=== PATIENT | female | born 1950 | race African-American/Black ===

== ENCOUNTER 2017-02-07 20:31 | Inpatient (IN) | payer MEDICARE, MEDICAID ==
[~2017-02-07] VITALS: Ht 165.1 cm; Wt 88.0 kg
[~2017-02-07 20:31] MED LIST: BUDE6HFA IH; DIVA500T51 PO; Hydrocortisone 2.5% TOP; NEBI10TA2 PO; OMEP20CA4 PO; VALS40TA4 PO
[2017-02-07] MEDS ORDERED: ASPIRIN 81MG TABLET PO ONE (21:30)
[2017-02-07] MEDS ORDERED: NITROGLYCERIN 0.4MG TABLET SL SL PRN (21:30)
[2017-02-07 21:47] LABS: BASOPHILS % 0.9 % (0.0-2.0); EOSINOPHILS % 2.5 % (0.0-5.0); HEMATOCRIT. 35.4 % (36.0-48.0); HEMOGLOBIN. 12.1 g/dL (12.0-16.0); MEAN CORPUSCULAR HEMOGLOBIN 29.9 pg (28.0-32.0); MEAN CORPUSCULAR VOLUME 87.4 fL (81.0-99.0); MEAN PLATELET VOLUME 9.4 fl (7.4-10.4); NEUTROPHILS % 47.6 % (40.0-76.0); PLATELET 143 x1000/uL (130-400); RED BLOOD CELL COUNT 4.05 mill/uL (4.2-5.4); RED CELL DISTRIBUTION WIDTH 14.4 % (11.6-14.6)
[2017-02-07 21:52] LABS: CHLORIDE 109 mEq/L (98-107)
[2017-02-07 21:54] LABS: PROTHROMBIN TIME 10.4 sec (9.4-11.6)
[2017-02-07 21:59] LABS: CARBON DIOXIDE 27 mEq/L (21-32)
[2017-02-07 22:02] LABS: TROPONIN I < 0.02 ng/mL (0.00-0.04)
[2017-02-07] MEDS ORDERED: ONDANSETRON HCL 4MG/2ML VIAL IV ONE (22:30)
[2017-02-07] MEDS ORDERED: PANTOPRAZOLE SODIUM 40 MG/VIAL IV ONE (23:15)
[2017-02-07] MEDS ORDERED: SODIUM CHLORIDE 0.9% 1,000 ML IV SCH (23:53)
[2017-02-08] MEDS ORDERED: IBUPROFEN 600MG TABLET PO PRN
[2017-02-08] MEDS ORDERED: ACETAMINOPHEN 325MG TABLET PO PRN
[2017-02-08] MEDS ORDERED: POTASSIUM CHLORIDE 20MEQ TABLET SR PO ONE
[2017-02-08] MEDS ORDERED: ONDANSETRON HCL 4MG/2ML VIAL IV PRN (00:15)
[2017-02-08] MEDS ORDERED: HYDROCODONE/ACETAMINOPHEN 5/325MG TABLET PO PRN (00:15)
[2017-02-08] MEDS ORDERED: CLONIDINE 0.1MG TABLET PO PRN (00:15)
[2017-02-08] MEDS ORDERED: DOCUSATE SODIUM 100MG CAPSULE PO PRN (00:15)
[2017-02-08] MEDS ORDERED: MAGNESIUM/ALUMINUM HYDROXIDE/SIMETHICONE 30ML UDC PO PRN (00:15)
[2017-02-08 00:49] LABS: CHLORIDE 108 mEq/L (98-107)
[2017-02-08 00:56] LABS: CARBON DIOXIDE 27 mEq/L (21-32)
[2017-02-08 01:24] LABS: CLARITY URINE CLEAR (CLEAR); COLOR URINE YELLOW (YELLOW); GLUCOSE URINE NEGATIVE (NEGATIVE); KETONES URINE NEGATIVE (NEGATIVE); LEUKOCYTE ESTERASE URINE NEGATIVE (NEGATIVE); NITRITE URINE NEGATIVE (NEGATIVE); OCCULT BLOOD URINE NEGATIVE (NEGATIVE); PROTEIN URINE NEGATIVE (NEGATIVE)
[2017-02-08 02:59] LABS: *AMPHETAMINES SCREEN URINE NEGATIVE (NEGATIVE); *BARBITURATES SCREEN URINE NEGATIVE (NEGATIVE); *BENZODIAZEPINES SCREEN URINE NEGATIVE (NEGATIVE); *COCAINE SCREEN URINE NEGATIVE (NEGATIVE); CANNABINOID URINE SCREEN NEGATIVE (NEGATIVE); METHADONE URINE SCREEN NEGATIVE (NEGATIVE); OPIATES URINE SCREEN NEGATIVE (NEGATIVE); PHENCYCLIDINE URINE SCREEN NEGATIVE (NEGATIVE)
[2017-02-08 06:09] VITALS: BP 151/74
[2017-02-08] MEDS ORDERED: DEXTROSE 50% WATER 50ML SYRINGE IV PRN (06:45)
[2017-02-08] MEDS: INSULIN LISPRO 100 UNITS/ML SUBCUT SCH ×4 (07:37→20:46)
[2017-02-08] MEDS: BLOOD SUGAR DIAGNOSTIC STRIP TEST SCH ×4 (07:37→20:45)
[2017-02-08 08:20] VITALS: BP 110/80
[2017-02-08] MEDS: ASPIRIN 81MG EC TABLET PO SCH (09:06)
[2017-02-08] MEDS: ENOXAPARIN 40MG/0.4ML SYR SUBCUT SCH (09:06)
[2017-02-08] MEDS: ACETAMINOPHEN 325MG TABLET PO PRN ×2 (09:10→18:09)
[2017-02-08 09:27] LABS: CREATINE KINASE 823 IU/L (26-192); CREATINE KINASE MB FRACTION 5.5 ng/mL (0.5-3.6); HDL CHOLESTEROL 53 mg/dL (40-59); LDL CHOLESTEROL 74 mg/dL (5-100); TROPONIN I < 0.02 ng/mL (0.00-0.04)
[2017-02-08] MEDS ORDERED: ATOR10TA69 PO (10:52)
[2017-02-08] MEDS ORDERED: AMLO2.5T45 PO (10:54)
[2017-02-08] MEDS ORDERED: CHOL20004 PO (10:54)
[2017-02-08] MEDS ORDERED: METF500T4 PO (10:56)
[2017-02-08] MEDS ORDERED: [UNRECOGNIZED DRUG - OTHER] (10:56)
[2017-02-08] MEDS ORDERED: ASPI-1159 PO (10:57)
[2017-02-08] MEDS ORDERED: RANO500T3 PO (11:00)
[2017-02-08] MEDS ORDERED: MEDICATION NOT ON FORMULARY EA (Cholecalciferol (Vitamin D) 50,000 UNIT) PO SCH (11:00)
[2017-02-08] MEDS ORDERED: ATORVASTATIN CALCIUM 10MG TABLET PO SCH (11:30)
[2017-02-08] MEDS ORDERED: POTASSIUM CHLORIDE 20MEQ TABLET SR PO SCH (11:45)
[2017-02-08 12:00] VITALS: BP 148/74
[2017-02-08] MEDS: DIVALPROEX SODIUM 500MG ER TABLET PO SCH (12:24)
[2017-02-08] MEDS: AMLODIPINE 5MG TABLET PO SCH (12:24)
[2017-02-08] MEDS: RANOLAZINE 500 MG TAB.SR.12H PO SCH ×2 (12:24→20:50)
[2017-02-08 15:49] LABS: CREATINE KINASE 746 IU/L (26-192); TROPONIN I < 0.02 ng/mL (0.00-0.04)
[2017-02-08 16:00] VITALS: BP 135/75
[2017-02-08] MEDS: METFORMIN HCL 500MG TABLET PO SCH (18:09)
[2017-02-08 20:00] VITALS: BP 113/52
[2017-02-09] VITALS: BP 145/71
[2017-02-09 04:00] VITALS: BP 138/72
[2017-02-09 06:59] LABS: BASOPHILS % 0.9 % (0.0-2.0); EOSINOPHILS % 3.2 % (0.0-5.0); HEMATOCRIT. 39.7 % (36.0-48.0); HEMOGLOBIN. 13.6 g/dL (12.0-16.0); LYMPHOCYTES % 42.8 % (20.0-50.0); MEAN CORPUSCULAR VOLUME 87.5 fL (81.0-99.0); MEAN PLATELET VOLUME 9.6 fl (7.4-10.4); MONOCYTES % 10.8 % (2.0-8.0); NEUTROPHILS % 42.3 % (40.0-76.0); PLATELET 150 x1000/uL (130-400); RED BLOOD CELL COUNT 4.53 mill/uL (4.2-5.4); RED CELL DISTRIBUTION WIDTH 14.4 % (11.6-14.6)
[2017-02-09 07:39] LABS: CARBON DIOXIDE 26 mEq/L (21-32); CHLORIDE 106 mEq/L (98-107)
[2017-02-09] MEDS: INSULIN LISPRO 100 UNITS/ML SUBCUT SCH ×4 (07:50→22:17)
[2017-02-09 08:00] VITALS: BP 110/64
[2017-02-09] MEDS: BLOOD SUGAR DIAGNOSTIC STRIP TEST SCH ×4 (08:08→22:17)
[2017-02-09] MEDS: DIVALPROEX SODIUM 500MG ER TABLET PO SCH (08:58)
[2017-02-09] MEDS: ASPIRIN 81MG EC TABLET PO SCH (08:58)
[2017-02-09] MEDS: RANOLAZINE 500 MG TAB.SR.12H PO SCH ×2 (08:58→22:14)
[2017-02-09] MEDS: ENOXAPARIN 40MG/0.4ML SYR SUBCUT SCH (08:59)
[2017-02-09] MEDS: OMEPRAZOLE 20MG CAPSULE EXTENDED RELEASE PO SCH (08:59)
[2017-02-09] MEDS ORDERED: ERGOCALCIFEROL 50000UNITS CAPSULE PO SCH (09:00)
[2017-02-09] MEDS: AMLODIPINE 5MG TABLET PO SCH (09:00)
[2017-02-09] MEDS ORDERED: ASPIRIN 81MG EC TABLET PO SCH (09:00)
[2017-02-09 12:00] VITALS: BP 128/60
[2017-02-09 16:00] VITALS: BP 129/66
[2017-02-09] MEDS: METFORMIN HCL 500MG TABLET PO SCH (17:02)
[2017-02-09 20:00] VITALS: BP 131/76
[2017-02-09] MEDS ORDERED: ATORVASTATIN CALCIUM 10MG TABLET PO SCH (21:00)
[2017-02-10] VITALS (7 sets, daily range): BP systolic 128–138; BP diastolic 71–74
[2017-02-10 06:42] LABS: BASOPHILS % 0.8 % (0.0-2.0); EOSINOPHILS % 2.5 % (0.0-5.0); HEMATOCRIT. 39.5 % (36.0-48.0); HEMOGLOBIN. 13.6 g/dL (12.0-16.0); LYMPHOCYTES % 34.5 % (20.0-50.0); MEAN CORPUSCULAR HEMOGLOBIN 30.6 pg (28.0-32.0); MEAN CORPUSCULAR VOLUME 88.4 fL (81.0-99.0); MEAN PLATELET VOLUME 9.9 fl (7.4-10.4); MONOCYTES % 10.3 % (2.0-8.0); NEUTROPHILS % 51.9 % (40.0-76.0); PLATELET 162 x1000/uL (130-400); RED BLOOD CELL COUNT 4.46 mill/uL (4.2-5.4); RED CELL DISTRIBUTION WIDTH 14.1 % (11.6-14.6)
[2017-02-10] MEDS: BLOOD SUGAR DIAGNOSTIC STRIP TEST SCH ×3 (06:42→17:00)
[2017-02-10] MEDS: INSULIN LISPRO 100 UNITS/ML SUBCUT SCH ×3 (06:42→17:18)
[2017-02-10 07:16] LABS: CARBON DIOXIDE 27 mEq/L (21-32); CHLORIDE 105 mEq/L (98-107)
[2017-02-10] MEDS ORDERED: ENOXAPARIN 30MG/0.3ML SYR SUBCUT SCH (09:00)
[2017-02-10] MEDS: RANOLAZINE 500 MG TAB.SR.12H PO SCH (10:46)
[2017-02-10] MEDS: DIVALPROEX SODIUM 500MG ER TABLET PO SCH (10:47)
[2017-02-10] MEDS: ASPIRIN 81MG EC TABLET PO SCH (10:47)
[2017-02-10] MEDS: AMLODIPINE 5MG TABLET PO SCH (10:47)
[2017-02-10] MEDS: OMEPRAZOLE 20MG CAPSULE EXTENDED RELEASE PO SCH (10:47)
[2017-02-10] MEDS: METFORMIN HCL 500MG TABLET PO SCH (17:15)
[2017-02-11] MEDS ORDERED: FAMOTIDINE 20MG TABLET PO SCH (09:00)
== END 2017-02-10 21:44 | disposition home or self-care (01) | DRG 206 ==
LOC: ER 21:38 → 6WST 23:55 → ENRESERV 02-08 02:43
PROVIDERS: ADMIT Internal Medicine; ATTEND Internal Medicine
DX: M94.0 Chondrocostal junction syndrome [Tietze] (principal); M62.82 Rhabdomyolysis; I11.9 Hypertensive heart disease without heart failure; M48.02 Spinal stenosis, cervical region; E83.39 Other disorders of phosphorus metabolism; E11.9 Type 2 diabetes mellitus without complications; E66.9 Obesity, unspecified; Z68.32 Body mass index [BMI] 32.0-32.9, adult; I25.10 Atherosclerotic heart disease of native coronary artery without angina pectoris; K21.9 Gastro-esophageal reflux disease without esophagitis; M79.7 Fibromyalgia; E78.5 Hyperlipidemia, unspecified; Z90.710 Acquired absence of both cervix and uterus; Z86.73 Personal history of transient ischemic attack (TIA), and cerebral infarction without residual deficits; Z88.2 Allergy status to sulfonamides
CPT/HCPCS: 36415; 71010; 76700; 80048; 80053; 80061; 80305; 81003; 82550; 82553; 82962; 83690; 83735; 83880; 84443; 84484; 85025; 85610; 93005; 93306; 93970; 96361; 96374; 96375; 99285; C9113; J1650; J2405; J7030

== ENCOUNTER 2017-11-22 11:52 | Emergency (ER) | payer MEDICARE, MEDICAID ==
[~2017-11-22] VITALS: Ht 165.1 cm; Wt 87.0 kg
[~2017-11-22 11:52] MED LIST changes: +AMLO2.5T45 PO; +ASPI-1159 PO; +ATOR10TA69 PO; -BUDE6HFA IH; -DIVA500T51 PO; -Hydrocortisone 2.5% TOP; +METF500T6 PO; -NEBI10TA2 PO; -OMEP20CA4 PO; +RANO500T3 PO; -VALS40TA4 PO
[2017-11-22] MEDS ORDERED: SODIUM CHLORIDE 0.9% 500 ML IV ONE (13:00)
[2017-11-22] MEDS ORDERED: ONDANSETRON HCL 4MG/2ML VIAL IV ONE (13:00)
[2017-11-22 14:33] LABS: HEMOGLOBIN. 13.4 g/dL (12.0-16.0); MEAN CORPUSCULAR VOLUME 87.2 fL (81.0-99.0); MEAN PLATELET VOLUME 9.9 fl (7.4-10.4); PLATELET 131 x1000/uL (130-400); RED BLOOD CELL COUNT 4.47 mill/uL (4.2-5.4); RED CELL DISTRIBUTION WIDTH 14.1 % (11.6-14.6)
[2017-11-22 14:39] LABS: CHLORIDE 108 mEq/L (98-107)
[2017-11-22 14:40] LABS: PROTHROMBIN TIME 10.7 sec (9.4-11.6)
[2017-11-22 14:55] LABS: CLARITY URINE CLEAR (CLEAR); COLOR URINE DARK YELLOW (YELLOW); KETONES URINE TRACE (NEGATIVE); LEUKOCYTE ESTERASE URINE NEGATIVE (NEGATIVE); NITRITE URINE NEGATIVE (NEGATIVE); OCCULT BLOOD URINE NEGATIVE (NEGATIVE); PH URINE 5.5 (4.5-8.0); PROTEIN URINE TRACE (NEGATIVE); SPECIFIC GRAVITY URINE 1.027 (1.005-1.030)
[2017-11-22 15:15] LABS: *AMPHETAMINES SCREEN URINE NEGATIVE (NEGATIVE); *BARBITURATES SCREEN URINE NEGATIVE (NEGATIVE); *BENZODIAZEPINES SCREEN URINE NEGATIVE (NEGATIVE)
[2017-11-22 15:16] LABS: *COCAINE SCREEN URINE NEGATIVE (NEGATIVE); CANNABINOID URINE SCREEN NEGATIVE (NEGATIVE); HEPATITIS B SURFACE ANTIGEN NEGATIVE; METHADONE URINE SCREEN NEGATIVE (NEGATIVE); OPIATES URINE SCREEN NEGATIVE (NEGATIVE); PHENCYCLIDINE URINE SCREEN NEGATIVE (NEGATIVE)
[2017-11-22 15:19] LABS: PLATELET ESTIMATE NORMAL
[2017-11-22 15:44] LABS: HEPATITIS B CORE AB IGM NEGATIVE
[2017-11-22 15:45] LABS: HEPATITIS A AB IGM NEGATIVE (NEGATIVE)
[2017-11-22] MEDS ORDERED: ACETAMINOPHEN 650MG/20.3ML UDC PO ONE (18:15)
[2017-11-22 20:30] VITALS: BP 132/80
== END 2017-11-22 21:10 | disposition home or self-care (01) ==
LOC: ER 12:55
DX: N20.0 Calculus of kidney (principal); E11.21 Type 2 diabetes mellitus with diabetic nephropathy; E86.0 Dehydration; I10 Essential (primary) hypertension; E87.8 Other disorders of electrolyte and fluid balance, not elsewhere classified; N17.0 Acute kidney failure with tubular necrosis; Z79.899 Other long term (current) drug therapy
CPT/HCPCS: 36415; 71045; 74176; 80053; 80305; 81003; 82941; 83036; 83605; 83880; 84484; 85025; 85610; 86677; 87040; 87086; 93005; 96361; 96374; 99285; J2405; J7040; 86705; 86709; 86803; 87340

== ENCOUNTER 2018-12-18 15:48 | Emergency (ER) | payer MEDICARE, MEDICAID ==
[~2018-12-18] VITALS: Ht 175.3 cm; Wt 68.5 kg
[~2018-12-18 15:48] MED LIST changes: -ASPI-1159 PO; +ASPI-1393 PO; +METF-414 PO; -METF500T6 PO
[2018-12-18] MEDS ORDERED: SODIUM CHLORIDE 0.9% 1,000 ML IV ONE (18:30)
[2018-12-18 19:15] LABS: BASOPHILS % 0.8 % (0.0-2.0); EOSINOPHILS % 2.3 % (0.0-5.0); HEMATOCRIT. 41.6 % (36.0-48.0); HEMOGLOBIN. 14.2 g/dL (12.0-16.0); LYMPHOCYTES % 47.8 % (20.0-50.0); MEAN CORPUSCULAR HEMOGLOBIN 30.4 pg (28.0-32.0); MEAN CORPUSCULAR VOLUME 89.3 fL (81.0-99.0); MEAN PLATELET VOLUME 9.7 fl (7.4-10.4); MONOCYTES % 9.2 % (2.0-8.0); NEUTROPHILS % 39.9 % (40.0-76.0); PLATELET 144 x1000/uL (130-400); RED BLOOD CELL COUNT 4.66 mill/uL (4.2-5.4)
[2018-12-18 19:20] LABS: CHLORIDE 106 mEq/L (98-107)
[2018-12-18] MEDS ORDERED: KETOROLAC 15MG/ML VIAL IV ONE (20:45)
[2018-12-18] MEDS ORDERED: ASPIRIN 81MG TABLET PO ONE (21:30)
[2018-12-18 22:00] VITALS: BP 136/72
== END 2018-12-19 00:02 | disposition home or self-care (01) ==
LOC: ER 15:48
DX: R07.89 Other chest pain (principal); M79.7 Fibromyalgia; E11.9 Type 2 diabetes mellitus without complications; I10 Essential (primary) hypertension; K21.9 Gastro-esophageal reflux disease without esophagitis; Z90.710 Acquired absence of both cervix and uterus; Z88.2 Allergy status to sulfonamides; Z79.899 Other long term (current) drug therapy
CPT/HCPCS: 36415; 71045; 80053; 83880; 84484; 85025; 93005; 96374; 99284; J1885; J7030

== ENCOUNTER 2019-05-11 17:19 | Emergency (ER) | payer MEDICARE, MEDICAID ==
[~2019-05-11] VITALS: Ht 165.1 cm; Wt 84.0 kg
[2019-05-11 17:29] VITALS: BP 137/89
== END 2019-05-11 22:40 | disposition left against medical advice (07) ==
LOC: ER 17:19
DX: Z53.21 Procedure and treatment not carried out due to patient leaving prior to being seen by health care provider (principal)

== ENCOUNTER 2019-07-07 12:07 | Emergency (ER) | payer MEDICARE, MEDICAID ==
[~2019-07-07] VITALS: Ht 167.6 cm; Wt 85.0 kg
[~2019-07-07 12:07] MED LIST changes: -ASPI-1393 PO; +ASPI-1497 PO
[2019-07-07] MEDS ORDERED: KETOROLAC 30MG/ML VIAL IM ONE (15:00)
[2019-07-07 15:43] VITALS: BP 149/64
== END 2019-07-07 15:44 | disposition home or self-care (01) ==
LOC: ER 12:07
DX: S10.83XA Contusion of other specified part of neck, initial encounter (principal); I10 Essential (primary) hypertension; E11.9 Type 2 diabetes mellitus without complications; K21.9 Gastro-esophageal reflux disease without esophagitis; E05.90 Thyrotoxicosis, unspecified without thyrotoxic crisis or storm; Z86.73 Personal history of transient ischemic attack (TIA), and cerebral infarction without residual deficits; Z88.2 Allergy status to sulfonamides; Z90.710 Acquired absence of both cervix and uterus; Z79.84 Long term (current) use of oral hypoglycemic drugs; Z79.82 Long term (current) use of aspirin; V73.6XXA Passenger on bus injured in collision with car, pick-up truck or van in traffic accident, initial encounter; Y93.89 Activity, other specified; Y92.488 Other paved roadways as the place of occurrence of the external cause
CPT/HCPCS: 72040; 96372; 99283; J1885

== ENCOUNTER 2023-09-22 10:50 | Emergency (ER) | payer BC, MEDICAID ==
[~2023-09-22] VITALS: Ht 165.1 cm; Wt 81.0 kg
[2023-09-22 12:14] LABS: EOSINOPHILS % 2.1 % (0.0-5.0); HEMATOCRIT. 39.3 % (36.0-48.0); HEMOGLOBIN. 13.5 g/dL (12.0-16.0); LYMPHOCYTES % 32.5 % (20.0-50.0); MEAN CORPUSCULAR HEMOGLOBIN 30.4 pg (28.0-32.0); MEAN CORPUSCULAR HGB CONC 34.4 g/dL (31.0-37.0); MEAN CORPUSCULAR VOLUME 88.4 fL (81.0-99.0); MEAN PLATELET VOLUME 9.7 fl (7.4-10.4); MONOCYTES % 9.1 % (2.0-8.0); NEUTROPHILS % 55.3 % (40.0-76.0); PLATELET 147 x1000/uL (130-400); RED BLOOD CELL COUNT 4.45 mill/uL (4.2-5.4); RED CELL DISTRIBUTION WIDTH 14.7 % (11.6-14.6); WHITE BLOOD COUNT 4.9 x1000/uL (4.5-11.0)
[2023-09-22 12:25] LABS: CHLORIDE 107 mEq/L (98-107); INR 0.9; PARTIAL THROMBOPLASTIN TIME 25.4 sec (23.4-31.0); POTASSIUM 3.7 mEq/L (3.5-5.1); PROTHROMBIN TIME 10.6 sec (9.6-11.0); SODIUM 141 mEq/L (136-145)
[2023-09-22 12:26] LABS: CALCIUM 9.2 mg/dL (8.7-10.4); CARBON DIOXIDE 28 mEq/L (21-32)
[2023-09-22 12:31] LABS: CREATININE 0.6 mg/dL (0.6-1.0); GLUCOSE 105 mg/dL (70-105); UREA NITROGEN BLOOD 11 mg/dL (9-23)
[2023-09-22 12:33] LABS: ALANINE AMINOTRANSFERASE 43 IU/L (10-49); ALBUMIN 4.4 g/dL (3.2-4.8); ASPARTATE AMINOTRANSFERASE 34 IU/L (<34); BILIRUBIN TOTAL 0.7 mg/dL (0.1-1.0); TROPONIN I HIGH SENSITIVITY 15 ng/L (3.0-34)
[2023-09-22 12:34] LABS: PROTEIN TOTAL 7.4 g/dL (6.0-8.3)
[2023-09-22] MEDS: ACETAMINOPHEN 325MG TABLET PO ONE (13:24)
[2023-09-22] MEDS: KETOROLAC 30MG/ML VIAL IV ONE (13:24)
[2023-09-22 14:06] VITALS: BP 152/66; PULSE 77; RESP 16
== END 2023-09-22 14:08 | disposition home or self-care (01) ==
LOC: ER 10:50
DX: R07.9 Chest pain, unspecified (principal); R51.9 Headache, unspecified; E11.9 Type 2 diabetes mellitus without complications; Z86.73 Personal history of transient ischemic attack (TIA), and cerebral infarction without residual deficits; Z88.2 Allergy status to sulfonamides
CPT/HCPCS: 99285; 96374; 70450; 71045; 80053; 83880; 83690; 85025; 85610; 85730; 84484; 36415; 93005; J1885